=== PATIENT | male | born 1945 | race Caucasian/White ===

== ENCOUNTER 2017-08-07 10:00 | Outpatient (CLI) | payer MEDICARE ==
--- NOTE | 2017-08-07 14:03 | RAD ---
RIGHT KNEE 4 VIEWS: Date: 08/07/17 HISTORY: Pain right knee, fall. FINDINGS/IMPRESSION: There are postop changes of total knee arthroplasty in good position and alignment. No acute fractur e or dislocation is seen. POS: [facility]
== END 2017-08-07 10:01 | disposition home or self-care (01) ==
LOC: SCSRAD 10:00
PROVIDERS: ATTEND Family Medicine
DX: M25.561 Pain in right knee (principal); Z98.890 Other specified postprocedural states

== ENCOUNTER 2018-01-18 07:40 | Outpatient (CLI) | payer MEDICARE ==
--- NOTE | 2018-01-18 09:33 | ULT ---
ULTRASOUND GALLBLADDER RIGHT UPPER QUADRANT: HISTORY: R83.2, abnormal CT scan. COMPARISON: None. FINDINGS: Pancreas is not well seen. Mild increased hepatic echotexture. The portal vein is patent with antegrade flow. The liver measures 17.1 cm in length. Gallbladder is normal. The right kidney measures 10.7 x 4.9 x 4.8 cm without mass, hydronephrosis, or abnormal calcification s. Common bile duct measures less than 3 mm, normal. IMPRESSION: 1. Mild increased hepatic echotexture can be seen with steatosis or hepatocellular disease. No othe r abnormality seen within the abdomen. 2. Although the reason for examination is abnormal CT, there are no examinations available for constantino roberts. POS: [facility]
== END 2018-01-18 07:41 | disposition home or self-care (01) ==
LOC: SCSULT 07:40
PROVIDERS: ATTEND Family Medicine
DX: R93.2 Abnormal findings on diagnostic imaging of liver and biliary tract (principal)
CPT/HCPCS: 76705

== ENCOUNTER 2018-02-02 10:35 | Outpatient (CLI) | payer MEDICARE ==
--- NOTE | 2018-02-02 12:46 | RAD ---
CHEST PA AND LATERAL: History: 72-year-old female with history of right lung nodule. Comparison: None available. FINDINGS: There is an approximately 0.8 cm diameter nodular density seen only on the PA radiograph in the right lower chest which may just represent a confluence of shadows. No evidence for other discrete pulmona ry nodule. Recommend follow up chest CT scan for further assessment. Bilateral shoulder joint arthros is and post-operative changes. IMPRESSION: Nodular area seen only on the PA radiograph overlying the right lower chest. This could just represen t a confluent of shadows although it could represent a pulmonary nodule. Follow up Chest CT scan in t his regard is recommended. POS: [facility]
== END 2018-02-02 10:36 | disposition home or self-care (01) ==
LOC: SCSRAD 10:35
PROVIDERS: ATTEND Family Medicine
DX: R91.1 Solitary pulmonary nodule (principal)
CPT/HCPCS: 71046

== ENCOUNTER 2019-03-24 10:08 | Outpatient (CLI) | payer MEDICARE ==
[~2019-03-24 10:08] MED LIST: Iopamidol 370 76% 100 ML VIAL ONE
--- NOTE | 2019-03-24 11:03 | CT ---
Exam: POSTCONTRAST CHEST CT: HISTORY: Incidental 4 mm nodule in the right lower lobe. COMPARISON: None. FINDINGS: There are postoperative sternotomy changes. No mediastinal mass, lymphadenopathy or hematoma. Heart s ize is within normal limits. No pericardial effusion. The thoracic aorta and upper abdominal aorta have an overall normal caliber. No periaortic fat stranding. Visualized upper solid organs are unremarkable. Trachea and central bronchi are patent. Dependent atelectatic changes. No pleural effusion. No pneumo thorax Left lung: No suspicious masses or consolidation in the left lung. Right lung: No suspicious masses or consolidation in the right upper lobe. There is a well-circumscri bed 0.4 x 0.3 cm solid nodule. Additional right lower lobe nodules are not appreciated. IMPRESSION: 4 mm solid nodule in the right lower lobe, along the lateral aspect. CODE LN Transcribed Date/Time: 03/24/2019 12:11 PM
== END 2019-03-24 10:09 | disposition home or self-care (01) ==
LOC: SCSCT 10:08
PROVIDERS: ATTEND Family Medicine
DX: R91.1 Solitary pulmonary nodule (principal)
CPT/HCPCS: 71260; Q9967

== ENCOUNTER 2020-04-04 14:44 | Outpatient (CLI) | payer MEDICARE ==
--- NOTE | 2020-04-04 15:49 | CT ---
EXAM: CT of the chest with contrast HISTORY: Right lower lobe pulmonary nodule COMPARISON: 03/24/2019 TECHNIQUE: Multiple contiguous axial images were obtained in a CT the chest with contrast. Coronal an d sagittal reformats were performed. FINDINGS: HEART: Normal in size without focal cardiac abnormality. The patient is status post CABG. MEDIASTINUM: No hilar or mediastinal lymphadenopathy. LUNGS: Stable tiny 4 mm right lower lobe pulmonary nodule on image 35 of 50. Bilateral dependent atel ectasis. PLEURAL SPACE: No pneumothorax or pleural effusion. CHEST WALL SOFT TISSUES: Unremarkable OSSEOUS STRUCTURES: Degenerative changes in the spine. VISUALIZED SUBDIAPHRAGMATIC STRUCTURES: Unremarkable IMPRESSION: Stable right lower lobe pulmonary nodule
== END 2020-04-04 14:45 | disposition home or self-care (01) ==
LOC: SCSCT 14:44
PROVIDERS: ATTEND Family Medicine
DX: R91.1 Solitary pulmonary nodule (principal)
CPT/HCPCS: 71260

== ENCOUNTER 2022-09-24 12:28 | Outpatient (CLI) | payer MEDICARE | END 2022-09-24 12:29 | disposition home or self-care (01) | LOC: SCSCT 12:28 | PROVIDERS: ATTEND Family Medicine | DX: R91.1 Solitary pulmonary nodule (principal) | CPT/HCPCS: 71250 ==